=== PATIENT | female | born 1950 | race Caucasian/White ===

== ENCOUNTER 2024-05-27 10:51 | Outpatient (CLI) | payer MEDICARE, SELFPAY | END 2024-05-27 10:52 | disposition home or self-care (01) | LOC: ANHBWCAUD 10:52 | PROVIDERS: PCP Otolaryngology; Visit Provider Otolaryngology | DX: H69.91 Unspecified Eustachian tube disorder, right ear (principal); J31.0 Chronic rhinitis; H90.3 Sensorineural hearing loss, bilateral | CPT/HCPCS: 92557; 92567 ==